=== PATIENT | female | born 2005 | race Two or more races ===

== ENCOUNTER 2023-07-01 04:12 | Emergency (ER) | payer OTHER ==
[~2023-07-01] VITALS: Ht 170.2 cm; Wt 59.0 kg
[~2023-07-01 04:12] MED LIST: NOCURR
[2023-07-01] MEDS ORDERED: RIFA300C62 GT (04:48)
[2023-07-01] MEDS ORDERED: FAMO20 PO (04:54)
[2023-07-01] MEDS ORDERED: DIPH25CA85 PO (04:54)
[2023-07-01] MEDS ORDERED: METH4TAB3 PO (04:54)
[2023-07-01] MEDS: FAMOTIDINE 20 MG/2 ML VIAL IVP ONE (05:15)
[2023-07-01] MEDS: MethylPREDNISolone SOD SUCC 125 MG/2 ML VIAL IVP ONE (05:15)
[2023-07-01] MEDS: DiphenhydrAMINE HCL 25 MG CAPSULE PO ONE (05:15)
[2023-07-01 06:16] VITALS: BP 102/62; PULSE 80; RESP 18; TEMP 98
== END 2023-07-01 06:18 | disposition home or self-care (01) ==
LOC: EMS 04:13
DX: T78.40XA Allergy, unspecified, initial encounter (principal); X58.XXXA Exposure to other specified factors, initial encounter
CPT/HCPCS: 99284; 96374; 96375; J3490; J2930